=== PATIENT | male | born 1965 | race Two or more races ===

== ENCOUNTER 2018-04-25 12:16 | Emergency (ER) | payer MEDICAID, SELFPAY ==
[~2018-04-25] VITALS: Ht 165.1 cm; Wt 79.1 kg
[2018-04-25] MEDS ORDERED: METHOCARBAMOL 750 MG TABLET ONE (12:42)
[2018-04-25] MEDS ORDERED: KETOROLAC 30 MG/1 ML ONE (12:42)
[2018-04-25] MEDS ORDERED: LOSA25TA6 PO (12:47)
[2018-04-25] MEDS ORDERED: ASPI-515 PO (12:47)
[2018-04-25] MEDS ORDERED: METHOCARBAMOL 750 MG TABLET PO ONE (13:00)
[2018-04-25] MEDS ORDERED: KETOROLAC 30 MG/1 ML IM ONE (13:00)
[2018-04-25] MEDS ORDERED: PLEASE ENTER ALLERGIES MC SCH (13:00)
[2018-04-25 14:37] VITALS: BP 159/103
== END 2018-04-25 14:38 | disposition home or self-care (01) ==
LOC: ED 14:30
DX: S62.357A Nondisplaced fracture of shaft of fifth metacarpal bone, left hand, initial encounter for closed fracture (principal); S16.1XXA Strain of muscle, fascia and tendon at neck level, initial encounter; M47.892 Other spondylosis, cervical region; W01.0XXA Fall on same level from slipping, tripping and stumbling without subsequent striking against object, initial encounter; Y93.89 Activity, other specified; Y92.828 Other wilderness area as the place of occurrence of the external cause; Y99.8 Other external cause status
CPT/HCPCS: 29125; 72050; 73130; 96372; 99284; J1885

== ENCOUNTER 2019-08-28 10:21 | Emergency (ER) | payer MEDICAID ==
[~2019-08-28] VITALS: Ht 167.6 cm; Wt 70.0 kg
[~2019-08-28 10:21] MED LIST: ASPI-515 PO; LOSA25TA25 PO
--- NOTE | 2019-08-28 10:29 | NUR ---
MD IS AT THRE BEDSIDE FOR ASSESSMENT
--- NOTE | 2019-08-28 10:37 | NUR ---
PT CHANGED INTO A HOSPITAL GOWN. HIS CLOTHES ARE URINE SOAKED.
--- NOTE | 2019-08-28 10:37 | NUR ---
PHLEBOTOMY IS AT THE BEDSIDE FOR BLOOD SAMPLING.
[2019-08-28 10:46] LABS: BASOPHILS # (AUTO) 0.03 x10^3/uL (0-0.1); BASOPHILS % (AUTO) 1 % (0-1); EOSINOPHILS # (AUTO) 0.25 x10^3/uL (0-0.4); EOSINOPHILS % (AUTO) 4 % (1-7); LYMPHOCYTES # (AUTO) 2.21 x10^3/uL (1-3.4); LYMPHOCYTES % (AUTO) 38 % (22-44); MD NO; MEAN CORPUSCULAR HEMOGLOBIN 30.3 pg (27.5-34.5); MEAN CORPUSCULAR VOLUME 89.2 fL (81-97); MEAN PLATELET VOLUME 6.6 fL (7.4-10.4); MONOCYTES # (AUTO) 0.58 x10^3/uL (0.2-0.8); MONOCYTES % (AUTO) 10 % (2-9); NEUTROPHILS # (AUTO) 2.68 x10^3/uL (1.8-6.8); NEUTROPHILS % (AUTO) 47 % (42-75); PLATELET COUNT 340 x10^3/uL (130-400); RED BLOOD COUNT 4.76 x10^6/uL (4.38-5.82); RED CELL DISTRIBUTION WIDTH 14.3 % (9.4-14.8)
--- NOTE | 2019-08-28 10:55 | NUR ---
report received at bedside from task AYLIN Hunter. pt is unresponsive to painful stimuli, no change since arrival. EDMD Jacobs aware. Pt placed on end tidal co2 monitor, level 26. EDMD Jacobs notified. Pt to CT at this time.
[2019-08-28 10:59] LABS: ANION GAP 7 mmol/L (5-15); CHLORIDE 109 mmol/L (98-107)
--- NOTE | 2019-08-28 11:10 | NUR ---
report to break AYLIN Hunter pt in CT.
--- NOTE | 2019-08-28 11:22 | NUR ---
I am assuming care of this pt while sveta enjoys a break. sbar was exchanged at the bedside.
--- NOTE | 2019-08-28 11:59 | NUR ---
sveta (rn) is assuming care of this pt at this time. sbar was exchanged at the bedside.
--- NOTE | 2019-08-28 11:59 | NUR ---
this RN back from break, CT has been completed. pt is now responsive to painful stimuli. pupils are 4mm, equal, round, sluggish reaction to light. all monitors in place including end tidal co2 monitor, now reading 31. all results back, plan is for patient to discharge when safe to do so. call light in reach, room close to nursing station. pt monitored closely by this RN.
--- NOTE | 2019-08-28 13:00 | NUR ---
oral temp attempted, pt unable to close mouth around probe. rectal temp obtained at 96.1. pt was incontinent of urine second time, gown changed, sheets changed, new chux pad placed. lyly care provided. fresh warm blankets provided. akhil hugger placed for patient warming. pupils are equal, round and reactive to light. pt awakens to light touch at this time. speech slurred, remains disoriented. wound care provided to abrasions on face. all monitors remain in place. pt to discharge when safe to do so.
[2019-08-28] MEDS ORDERED: NEOSPORIN OINT. PKT 1 PACKET ONE (13:09)
--- NOTE | 2019-08-28 13:38 | NUR ---
pt awakens to light touch, continues to mostly sleep. resps even and unlabored. vss. etco2 now 32-33.
--- NOTE | 2019-08-28 14:14 | NUR ---
pt awakens to light touch, resps even and unlabored. pupils 4mm, equal, round and reactive (sluggish). pt able to state first name and follow some commands. temp reassessed. pt's gown and linens checked, pt has not been incontinent again. etco2 31 at this time. pt to be dc'd when safe to do so. weight shifts with pillow in place q1h.
--- NOTE | 2019-08-28 15:04 | NUR ---
Report from AYLIN Contreras. Pt resting back in bed, asleep. NAD noted at this time. Curtain opened and pt close to RN/MD station for closer monitoring.
--- NOTE | 2019-08-28 15:05 | NUR ---
REPORT GIVEN TO AYLIN ABDUL AT BEDSIDE. ALL MONITORS IN PLACE. VSS. PT AWAKENS SPONTANEOUSLY, SPEECH MORE CLEAR, ABLE TO STATE FULL NAME. PT ABLE TO USE URINAL TO VOID WITHOUT ASSIST. PT TO DC WHEN SAFE.
--- NOTE | 2019-08-28 15:09 | NUR ---
MEAL TRAY ORDERED
--- NOTE | 2019-08-28 16:29 | NUR ---
PT GIVEN MEAL TRAY, ENCOURAGED TO EAT. PT REPOSITIONS SELF IN BED TO SIT UP FOR MEAL. DIFFICULTY FOCUSING. PT LAUGHING IN BED. RESPIRATIONS EVEN AND UNLABORED.
[2019-08-28 17:10] VITALS: BP 112/83
--- NOTE | 2019-08-28 17:11 | NUR ---
PT SITTING UP, EATING. NAD NOTED AT THIS TIME. PT SMILES AT STAFF. DENIES CURRENT PAIN AT THIS TIME. DENIES FURTHER NEEDS AT THIS TIME.
== END 2019-08-28 17:48 | disposition home or self-care (01) ==
LOC: ED 17:42
DX: S00.81XA Abrasion of other part of head, initial encounter (principal); F10.229 Alcohol dependence with intoxication, unspecified; G92 Toxic encephalopathy; R41.0 Disorientation, unspecified; Y90.8 Blood alcohol level of 240 mg/100 ml or more; X58.XXXA Exposure to other specified factors, initial encounter; Y93.89 Activity, other specified; Y92.89 Other specified places as the place of occurrence of the external cause; Y99.8 Other external cause status
CPT/HCPCS: 36415; 70450; 80048; 80307; 83735; 85025; 99284

== ENCOUNTER 2019-10-10 14:20 | Emergency (ER) | payer MEDICAID ==
[~2019-10-10] VITALS: Ht 165.1 cm; Wt 80.1 kg
[2019-10-10 14:24] VITALS: BP 150/96
[2019-10-10] MEDS ORDERED: LIDOCAINE-MPF 1%, 5ML ONE (14:54)
[2019-10-10] MEDS ORDERED: LIDOCAINE-MPF 1%, 5ML INFIL ONE (15:00)
--- NOTE | 2019-10-10 15:25 | NUR ---
REPORT GIVEN TO AYLIN ESPINAL, PT BEING SUTURED AT THIS TIME.
== END 2019-10-10 15:47 | disposition home or self-care (01) ==
LOC: ED 15:40
DX: S81.812A Laceration without foreign body, left lower leg, initial encounter (principal); W22.8XXA Striking against or struck by other objects, initial encounter; Y93.89 Activity, other specified; Y92.410 Unspecified street and highway as the place of occurrence of the external cause; Y99.8 Other external cause status
CPT/HCPCS: 12032; 99284

== ENCOUNTER 2019-10-17 02:39 | Emergency (ER) | payer MEDICAID ==
[~2019-10-17] VITALS: Ht 165.1 cm; Wt 80.1 kg
[2019-10-17 02:41] VITALS: BP 158/90
== END 2019-10-17 03:00 | disposition home or self-care (01) ==
LOC: ED 02:45
DX: S81.812D Laceration without foreign body, left lower leg, subsequent encounter (principal); X58.XXXD Exposure to other specified factors, subsequent encounter
CPT/HCPCS: 99281

== ENCOUNTER 2019-10-23 06:28 | Emergency (ER) | payer MEDICAID ==
[~2019-10-23] VITALS: Ht 165.1 cm; Wt 82.7 kg
[2019-10-23 06:31] VITALS: BP 161/92
[2019-10-23] MEDS ORDERED: NEOSPORIN OINT. PKT 1 PACKET ONE (06:57)
--- NOTE | 2019-10-23 07:02 | NUR ---
Patient/Caregiver given discharge instructions and they have confirmed that they understand the instructions. Patient ambulatory with steady gait. 5 large bandaids provided.
== END 2019-10-23 07:04 | disposition home or self-care (01) ==
LOC: ED 07:03
DX: S81.812D Laceration without foreign body, left lower leg, subsequent encounter (principal); X58.XXXD Exposure to other specified factors, subsequent encounter
CPT/HCPCS: 99281

== ENCOUNTER 2019-10-27 13:43 | Emergency (ER) | payer MEDICAID ==
[~2019-10-27] VITALS: Ht 172.7 cm; Wt 65.9 kg
--- NOTE | 2019-10-27 14:18 | NUR ---
RECTAL TEMP 95.3, WARM BLANKETS AND BED WARMER APPLIED.
--- NOTE | 2019-10-27 14:41 | NUR ---
report received from robert yi.
--- NOTE | 2019-10-27 14:55 | NUR ---
PT SLEEPING IN [facility]. RESPS EVEN AND UNLABORED. BP/SPO2 MONITORS IN PLACE. CALL LIGHT WITHIN REACH.
[2019-10-27 14:56] LABS: BASOPHILS # (AUTO) 0.02 x10^3/uL (0-0.1); BASOPHILS % (AUTO) 1 % (0-1); EOSINOPHILS # (AUTO) 0.17 x10^3/uL (0-0.4); EOSINOPHILS % (AUTO) 5 % (1-7); LYMPHOCYTES # (AUTO) 1.07 x10^3/uL (1-3.4); LYMPHOCYTES % (AUTO) 30 % (22-44); MD NO; MEAN CORPUSCULAR HGB CONC 33.7 g/dL (33.2-36.2); MEAN PLATELET VOLUME 6.4 fL (7.4-10.4); MONOCYTES # (AUTO) 0.35 x10^3/uL (0.2-0.8); MONOCYTES % (AUTO) 10 % (2-9); NEUTROPHILS # (AUTO) 1.99 x10^3/uL (1.8-6.8); NEUTROPHILS % (AUTO) 55 % (42-75); PLATELET COUNT 306 x10^3/uL (130-400); RED BLOOD COUNT 4.68 x10^6/uL (4.38-5.82); RED CELL DISTRIBUTION WIDTH 14.6 % (9.4-14.8)
[2019-10-27 15:04] LABS: ALBUMIN 3.6 g/dL (3.4-5.0); ANION GAP 8 mmol/L (5-15); CHLORIDE 114 mmol/L (98-107); CREATININE 0.67 mg/dL (0.7-1.3)
--- NOTE | 2019-10-27 15:45 | NUR ---
SPO2 WAS 88% WITH RA WHILE PT WAS SLEEPING. 2L BY NC PLACED AND SPO2 IS ABOVE 97% AT THIS TIME. PT STILL SLEEPING. RESPS EVEN AND UNLABORED. BP/SPO2 MONITORS IN PLACE. CALL LIGHT WITHIN REACH.
--- NOTE | 2019-10-27 16:57 | NUR ---
PT'S TEMP IS 97.9 BY ORAL AT THIS TIME. PT RESTING IN RNEY. PT IS STILL AOX1. RESPS EVEN AND UNLABORED. VSS.
--- NOTE | 2019-10-27 17:43 | NUR ---
PT OCCASIONALLY MOANS. PT RESPONDS TO LOUD NOISES AT THIS TIME. PT IS AOX1 STILL. VSS.
[2019-10-27 18:31] VITALS: BP 107/63
--- NOTE | 2019-10-27 18:31 | NUR ---
PT RESPONSE TO PAINFUL STIMULI AND STATES " GET OUT OF HERE." PT BACK TO SLEEP. VSS.
--- NOTE | 2019-10-27 18:40 | NUR ---
pt was agitated and pulled piv out himself.
--- NOTE | 2019-10-27 18:46 | NUR ---
this rn ettempted to dc this pt and pt agitated and aggressive. this rn called for help and security paged. pt amb with steady gait. pt's aox4. resps even and unlabored. Patient given discharge instructions and they have confirmed that they understand the instructions.
== END 2019-10-27 18:50 | disposition home or self-care (01) ==
LOC: ED 14:44
DX: B34.9 Viral infection, unspecified (principal); R41.82 Altered mental status, unspecified; T68.XXXA Hypothermia, initial encounter; R53.83 Other fatigue; R06.02 Shortness of breath; F10.229 Alcohol dependence with intoxication, unspecified; Y90.0 Blood alcohol level of less than 20 mg/100 ml
CPT/HCPCS: 36415; 71045; 80048; 80307; 82040; 85025; 93005; 99285